=== PATIENT | female | born 1990 | race Caucasian/White ===

== ENCOUNTER 2019-05-08 13:11 | Emergency (ER) | payer OTHER ==
[2019-05-08 13:33] VITALS: RESP 18; TEMP 98.3
--- NOTE | 2019-05-08 13:55 | ED ---
General Adult HPI - General Chief complaint: Head Injury Stated complaint: Dizzy/fell and hit head Time Seen by Provider: 05/08/19 13:39 Source: patient, RN notes reviewed Mode of arrival: ambulatory Limitations: no limitations - History of Present Illness Initial comments: Patient is a pleasant 29-year-old female presenting to the emergency department following a head injury. Injury occurred last night. Patient was on the steps and tripped by a dog. Patient fell and struck her forehead and nasal region on a heating vent on the baseboard. Patient has been lightheaded since that time. No confusion or weakness. Patient states she also bumped her left hip however disbelieves bruised. Patient is able ambulate and has no concerns for fracture there. No vomiting. - Related Data Allergies Allergy/AdvReac Type Severity Reaction Status Date / Time No Known Allergies Allergy Verified 05/08/19 13:33 Review of Systems ROS Statement: Those systems with pertinent positive or pertinent negative responses have been documented in the HPI. ROS Other: All systems not noted in ROS Statement are negative. Constitutional: Denies: fever Eyes: Denies: eye pain ENT: Denies: ear pain Respiratory: Denies: cough, dyspnea Cardiovascular: Denies: chest pain Endocrine: Denies: fatigue Gastrointestinal: Denies: abdominal pain Genitourinary: Denies: dysuria Musculoskeletal: Denies: back pain Skin: Denies: rash Neurological: Reports: as per HPI, headache Past Medical History Additional Past Medical History / Comment(s): carpal tunnel History of Any Multi-Drug Resistant Organisms: None Reported Additional Past Surgical History / Comment(s): eye surgery Past Psychological History: No Psychological Hx Reported Smoking Status: Current every day smoker Past Alcohol Use History: Occasional Past Drug Use History: None Reported General Exam Limitations: no limitations General appearance: alert Head exam: Present: normocephalic Eye exam: Present: normal appearance, PERRL, EOMI. Absent: nystagmus ENT exam: Present: normal oropharynx, other (Mild nasal tenderness. No maxillary tenderness or zygomatic tenderness.) Neck exam: Present: normal inspection Respiratory exam: Present: normal lung sounds bilaterally Cardiovascular Exam: Present: regular rate, normal rhythm GI/Abdominal exam: Present: soft. Absent: tenderness Extremities exam: Present: normal inspection, full ROM. Absent: tenderness Neurological exam: Present: alert, oriented X3, CN II-XII intact. Absent: motor sensory deficit Expanded Neurological exam: Present: protecting the airway Speech: Present: fluid speech Cranial nerves: EOM's Intact: Normal Cerebellar function: Finger to Nose: Normal Motor strength exam: RUE: 5, LUE: 5, RLE: 5, LLE: 5 Eye Response: (4) open spontaneously Motor Response: (6) obeys commands Verbal Response: (5) oriented Psychiatric exam: Present: normal affect, normal mood Skin exam: Present: normal color Course Vital Signs 05/08/19 13:31 Temperature 98.3 F Pulse Rate 97 Respiratory 18 Rate Blood Pressure 134/86 O2 Sat by Pulse 98 Oximetry Medical Decision Making - Medical Decision Making Patient reevaluated and updated . patient is resting comfortably in bed. - Radiology Data Radiology results: image reviewed (Computed tomography scan of the brain reveals no acute process) Disposition Clinical Impression: Head injury Disposition: HOME SELF-CARE Condition: Stable Instructions (If sedation given, give patient instructions): Concussion (ED) Additional Instructions: Please follow-up with primary care physician next couple days for recheck. [id number] Tylenol as needed for discomfort. Ice to affected area. [id number] Antivert if needed for lightheadedness. Return for confusion, persistent vomiting, weakness, worsening symptoms or other concerns. Is patient prescribed a controlled substance at d/c from ED?: No Referrals: Yuko Gonsales MD [Primary Care Provider] - 1-2 days Time of Disposition: 14:28
--- NOTE | 2019-05-08 14:19 | CT ---
EXAMINATION TYPE: CT brain wo con DATE OF EXAM: 05/08/2019 COMPARISON: None HISTORY: dizziness post strikiing head on base board CT DLP: 1041.4 mGycm Automated exposure control for dose reduction was used. Multiple axial sections were obtained of the brain without contrast. Ventricles and sulci appear normal. There is no mass effect nor midline shift. There is no sign of in tracranial hemorrhage. Calvarium is intact. There is no evidence of cerebral edema. IMPRESSION: Negative head CT scan.
[2019-05-08 14:33] VITALS: BP 128/82; PULSE 88
== END 2019-05-08 14:32 | disposition home or self-care (01) ==
LOC: EC 13:11
DX: S09.90XA Unspecified injury of head, initial encounter (principal); F17.200 Nicotine dependence, unspecified, uncomplicated; W01.198A Fall on same level from slipping, tripping and stumbling with subsequent striking against other object, initial encounter; Y92.009 Unspecified place in unspecified non-institutional (private) residence as the place of occurrence of the external cause
CPT/HCPCS: 70450; 99283

== ENCOUNTER 2021-07-26 18:26 | Emergency (ER) | payer OTHER ==
[2021-07-26 18:32] VITALS: TEMP 98
[2021-07-26 18:50] VITALS: RESP 18
--- NOTE | 2021-07-26 20:55 | CT ---
EXAMINATION TYPE: CT brain cspine wo con DATE OF EXAM: 07/26/2021 COMPARISON: CT brain 05/08/2019 HISTORY: Head injury CT DLP: 1371.9 mGycm Automated exposure control for dose reduction was used. Ventricles have normal size. There is no mass effect or midline shift. There is no sign of intracrani al hemorrhage. The calvarium is intact. There is no evidence of cerebral edema. The cervical vertebra have normal spacing and alignment. Posterior elements are intact. Prevertebral soft tissues appear normal. Facet joints appear normal. There is normal aeration of the mastoid sinus es. Skull base is intact. IMPRESSION: Normal CT scan of the brain. No change. Normal CT scan of the cervical spine.
--- NOTE | 2021-07-26 21:09 | ED ---
Head Injury HPI - General Chief complaint: Head Injury Stated complaint: head injury Source: patient Mode of arrival: ambulatory Limitations: no limitations - History of Present Illness Initial comments: 31-year-old female presents to the emergency department after she had a head injury. States that yesterday she got hit the back of the head by her car door. No loss of consciousness. Does not take any blood thinners. States that today she has just "felt off". Feels like it's hard to answer questions. She feels foggy with a mild headache. No visual changes. She denies any fevers. No unilateral numbness or weakness. States she felt similar after she had a head injury 2 years ago. Never followed with a neurologist but was diagnosed with a concussion. No long-term symptoms. She denies any nausea or vomiting. No other alleviating, precipitating modifying factors - Related Data Home Medications Medication Instructions Recorded Confirmed Dextroamphetamine/Amphetamine 30 mg PO BID 07/26/21 07/26/21 [Adderall] busPIRone HCl [Buspar] 10 mg PO TID 07/26/21 07/26/21 Previous Rx's Medication Instructions Recorded Meclizine [Antivert] 25 mg PO TID PRN #20 tab 07/26/21 Allergies/Adverse reactions: Allergies Allergy/AdvReac Type Severity Reaction Status Date / Time No Known Allergies Allergy Verified 07/26/21 20:06 Review of Systems ROS Statement: Those systems with pertinent positive or pertinent negative responses have been documented in the HPI. ROS Other: All systems not noted in ROS Statement are negative. Past Medical History Additional Past Medical History / Comment(s): carpal tunnel History of Any Multi-Drug Resistant Organisms: None Reported Additional Past Surgical History / Comment(s): eye surgery Past Psychological History: No Psychological Hx Reported Smoking Status: Never smoker Past Alcohol Use History: Occasional Past Drug Use History: None Reported General Exam Limitations: no limitations Course Vital Signs 07/26/21 07/26/21 07/26/21 18:29 18:45 19:40 Temperature 98.0 F Pulse Rate 100 97 72 Respiratory 20 18 18 Rate Blood Pressure 144/97 139/102 151/92 O2 Sat by Pulse 99 100 100 Oximetry 07/26/21 20:42 Temperature Pulse Rate 68 Respiratory 18 Rate Blood Pressure 145/77 O2 Sat by Pulse 97 Oximetry Medical Decision Making - Medical Decision Making Upon arrival patient is placed into room 5. A thorough history and physical exam is performed. Patient is sent for a CT of her brain and cervical spine which demonstrates no acute process. No acute intracranial process. Results are discussed patient. Did recommend neurology follow-up for possible MRI. May take Tylenol for pain and meclizine for dizziness. Return to the emergency room for any new or worsening symptoms. Patient agreed treatment plan was discharged in stable condition Disposition Clinical Impression: Concussion without loss of consciousness Disposition: HOME SELF-CARE Condition: Stable Instructions (If sedation given, give patient instructions): Concussion (ED) Additional Instructions: No extreme sports or activities. Take Tylenol for pain. May try meclizine for vertigo symptoms. follow-up with the neurologist for an MRI. Return to the emergency room for any new or worsening symptoms Prescriptions: Meclizine [Antivert] 25 mg PO TID PRN #20 tab PRN Reason: Vertigo Is patient prescribed a controlled substance at d/c from ED?: No Referrals: Yuko Gonsales MD [Primary Care Provider] - 1-2 days Berenice Coley MD [REFERRING] - 1-2 days Gloria Coley MD [REFERRING] - 1-2 days Deep Shi DO [STAFF PHYSICIAN] - 1-2 days Time of Disposition: 21:08
[2021-07-26 21:26] VITALS: BP 145/78; PULSE 78
== END 2021-07-26 21:30 | disposition home or self-care (01) ==
LOC: EC 18:26
DX: S06.0X0A Concussion without loss of consciousness, initial encounter (principal); W01.10XA Fall on same level from slipping, tripping and stumbling with subsequent striking against unspecified object, initial encounter
CPT/HCPCS: 70450; 72125; 99284

== ENCOUNTER → 2021-11-20 | Outpatient (CLI) | payer OTHER ==
--- NOTE | 2021-11-21 10:18 | NM ---
EXAMINATION TYPE: NM thyroid image w uptake DATE OF EXAM: 11/21/2021 COMPARISON: NONE HISTORY: Abnormal thyroid function TECHNIQUE: Thyroid iodine uptake is calculated and images performed after the oral administration of 315 uCi 1-123 Capsule. FINDINGS: There is suggestion of a cold defect involving the inferior lateral right lobe thyroid. Th e 4 hour iodine uptake is calculated at 34.1% (normal range 8-14%). The 24-hour iodine uptake is calc ulated at 50.4% (normal range 15-35%). IMPRESSION: 1. Correlate for hyperthyroidism. 2. Suggestion of cold defect inferior lateral right lobe thyroid recommend ultrasound correlation.
== END | disposition home or self-care (01) ==
LOC: RADNMMAIN 08:37
PROVIDERS: ATTEND Internal Medicine Endocrinology, Diabetes & Metabolism
DX: E06.9 Thyroiditis, unspecified (principal)
CPT/HCPCS: 78014; A9500

== ENCOUNTER → 2021-12-27 | Outpatient (CLI) | payer OTHER ==
--- NOTE | 2021-12-27 14:13 | US ---
EXAMINATION TYPE: US thyroid st tissue head/neck DATE OF EXAM: 12/27/2021 COMPARISON: NM 2021 CLINICAL HISTORY: E05.90 THYROTOXICOSIS. Thyrotoxicosis. GLAND SIZE: Right Lobe: 6.0 x 2.5 x 1.7 cm Overall Parenchyma: heterogenous Left Lobe: 5.8 x 2.1 x 1.5 cm Overall Parenchyma: heterogeneous Isthmus Thickness: 0.40 cm NODULES RIGHT: # of nodules measured on right: 1 1. Nodule versus possible prominent parathyroid tissue 0.8 x 0.8 x 0.8 cm, lower lateral-mid hypoech oic nodule, which is as wide as it is tall, with ill-defined margins, without echogenic foci. Prior size: NM was only prior LEFT: # of nodules measured on left: 0 ISTHMUS: # of nodules measured in the isthmus: 0 Bilateral neck scanned, no evidence of lymphadenopathy. Heterogenous appearance to the thyroid. IMPRESSION: Moderately suspicious nodule right lobe thyroid. Consider follow-up exam in one year. 2017 ACR TI-RADS LEVEL: TR-RADS 4 - Moderately Suspicious: Follow if > 1 cm, FNA if > 1.5 cm *Highest TI-RADS level nodule reported
== END | disposition home or self-care (01) ==
LOC: RADUSWWP 13:37
PROVIDERS: ATTEND Internal Medicine Endocrinology, Diabetes & Metabolism
DX: E05.90 Thyrotoxicosis, unspecified without thyrotoxic crisis or storm (principal)
CPT/HCPCS: 76536; 82306; 84439; 84443

== ENCOUNTER → 2022-09-23 | Outpatient (CLI) | payer BC ==
--- NOTE | 2022-09-24 10:23 | US ---
EXAMINATION TYPE: US thyroid st tissue head/neck DATE OF EXAM: 09/23/2022 COMPARISON: US 12/27/21 CLINICAL INDICATION: Female, 32 years old with history of E04.1 NONTOXIC SINGLE THYROID NODULE; Thyro id nodule. GLAND SIZE: Right Lobe: 5.9 x 2.4 x 1.9 cm Overall Parenchyma: heterogenous Left Lobe: 5.9 x 2.2 x 1.6 cm Overall Parenchyma: heterogenous Isthmus Thickness: 0.5 cm NODULES RIGHT: # of nodules measured on right: First nodule -Question thyroid nodule versus parathyroid tis nory? Parathyroid is favored. 1. 1.9 X 1.4 x 0.7 cm, lower mid, solid or almost completely solid, hypoechoic nodule, which is wi martin than tall, with ill-defined margins, without echogenic foci. This may be external to the posterio r inferior right lobe thyroid. Thyroid is heterogenous. Prior size: 0.8 x 0.8 x 0.8 cm LEFT: # of nodules measured on left: 0 ISTHMUS: # of nodules measured in the isthmus: 0 Bilateral neck scanned, no evidence of lymphadenopathy. IMPRESSION: Suspected parathyroid inferior and posterior to the right lobe thyroid. Consider nuclear medicine par athyroid scan for correlation.
== END | disposition home or self-care (01) ==
LOC: RADUSWWP 16:28
PROVIDERS: ATTEND Family Medicine
DX: E04.1 Nontoxic single thyroid nodule (principal)
CPT/HCPCS: 76536